=== PATIENT | male | born 1985 | race African-American/Black ===

== ENCOUNTER 2020-09-09 19:59 | Emergency (ER) | payer BC ==
[2020-09-09] MEDS ORDERED: Lidocaine 2% 5 ML SDV INJECT ONE (20:41)
--- NOTE | 2020-09-09 20:46 | EDM.PDOC ---
ED HPI GENERAL MEDICAL PROBLEM - General Chief Complaint: Upper Extremity Injury/Pain Stated Complaint: SWOLLEN FINGER Time Seen by Provider: 09/09/20 20:22 Source of Information: Reports: Patient History Limitations: Reports: No Limitations - History of Present Illness INITIAL COMMENTS - FREE TEXT/NARRATIVE: Patient is a 35-year-old male presents today for left middle finger swelling. Patient states that he recurrently gets swelling around the distal end of his finger. Patient is he occasionally bites his nails. Patient is in the past been placed on antibiotics for this. Patient denies any spreading of the swelling no redness not there is not feel warm denies any systemic symptoms of fever chills nausea vomiting. - Related Data Allergies Allergy/AdvReac Type Severity Reaction Status Date / Time shrimp Allergy Other Verified 09/09/20 20:44 Home Meds: Home Meds Amoxicillin/Potassium Clav [Augmentin 875-125 Tablet] 1 each PO BID 7 Days #14 tablet 09/09/20 [Rx] Review of Systems - Review of Systems Review Of Systems: See Below Constitutional: Reports: No Symptoms Eyes: Reports: No Symptoms Ears: Reports: No Symptoms Nose: Reports: No Symptoms Mouth/Throat: Reports: No Symptoms Respiratory: Reports: No Symptoms Cardiovascular: Reports: No Symptoms GI/Abdominal: Reports: No Symptoms Genitourinary: Reports: No Symptoms Musculoskeletal: Reports: Other (finger swelling) Skin: Reports: No Symptoms Neurological: Reports: No Symptoms Psychiatric: Reports: No Symptoms ED EXAM, GENERAL - Physical Exam Exam: See Below Exam Limited By: No Limitations General Appearance: Alert, WD/WN, No Apparent Distress Respiratory/Chest: No Respiratory Distress, Lungs Clear Cardiovascular: Normal Peripheral Pulses, Regular Rate, Rhythm Peripheral Pulses: 2+: Radial (L), Radial (R) GI/Abdominal: Normal Bowel Sounds, Soft, Non-Tender Extremities: Normal Inspection, Normal Range of Motion, Non-Tender, Other (left middle finger distal swelling ) Neurological: Alert, Oriented ED TRAUMA EXTREMITY PROCEDURES - I&D Site: left middle finger Skin Prep: Providone-Iodine (Betadine) Local Anesthesia: Lidocaine: 1% Plain Local Anesthetic Volume: 2cc Area Incised With: 11 Blade Drainage: Purulent, Bloody Probed to Break Up Loculations: No Packed With: None Sterile Dressinx4(s) Complications: No Course - Vital Signs Last Recorded V/S: Last Vital Signs Temp 96.8 F L 09/09/20 20:38 Pulse 88 09/09/20 20:38 Resp 15 09/09/20 20:38 BP 144/77 H 09/09/20 20:38 Pulse Ox 99 09/09/20 20:38 - Orders/Labs/Meds Meds: Medications Discontinued Medications Generic Name Dose Route Start Last Admin Trade Name Kristal PRN Reason Stop Dose Admin Amoxicillin/Clavulanate Potassium 1 tab 09/09/20 20:47 09/09/20 21:03 Amoxicillin/Clavulanate K 875-125 Mg Tab PO 09/09/20 20:48 1 tab ONETIME ONE Administration Lidocaine 5 ml 09/09/20 20:41 09/09/20 20:45 Lidocaine 2% 5 Ml Sdv INJECT 09/09/20 20:42 Not Given ONETIME ONE Lidocaine HCl Confirm 09/09/20 20:45 09/09/20 21:03 Lidocaine 1% 5 Ml Sdv Administered 09/09/20 20:46 5 ml Dose Administration 5 ml .ROUTE .STK-MED ONE Departure - Departure Time of Disposition: 21:05 Disposition: Home, Self-Care 01 Condition: Good Clinical Impression: Paronychia of finger - Discharge Information *PRESCRIPTION DRUG MONITORING PROGRAM REVIEWED*: Not Applicable *COPY OF PRESCRIPTION DRUG MONITORING REPORT IN PATIENT ROSSY: Not Applicable Prescriptions: Amoxicillin/Potassium Clav [Augmentin 875-125 Tablet] 1 each PO BID 7 Days #14 tablet Instructions: Paronychia, [id number] Referrals: PCP,None [Primary Care Provider] - Forms: ED Department Discharge Additional Instructions: The following information is given to patients seen in the emergency department who are being discharged to home. This information is to outline your options for follow-up care. We provide all patients seen in our emergency department with a follow-up referral. The need for follow-up, as well as the timing and circumstances, are variable depending upon the specifics of your emergency department visit. If you don't have a primary care physician on staff, we will provide you with a referral. We always advise you to contact your personal physician following an emergency department visit to inform them of the circumstance of the visit and for follow-up with them and/or the need for any referrals to a consulting specialist. The emergency department will also refer you to a specialist when appropriate. This referral assures that you have the opportunity for follow-up care with a specialist. All of these measure are taken in an effort to provide you with optimal care, which includes your follow-up. Under all circumstances we always encourage you to contact your private physician who remains a resource for coordinating your care. When calling for follow-up care, please make the office aware that this follow-up is from your recent emergency room visit. If for any reason you are refused follow-up, please contact the [facility] Emergency Department at and asked to speak to the emergency department charge nurse. Please follow up with your primary care physician. If you do not have a primary care physician, see below: [facility] [address] [place] [id number] My [facility] [address] [place] [address] You are seen today for swelling to the left middle finger which looks like a paronychia. We able to drain a small amount of pus from the area temporally the pain. We also sent home antibiotics. If you have increased swelling drainage or other symptoms please return to ED immediately I will follow with primary care physician. Sepsis Event Note (ED) - Evaluation Sepsis Screening Result: No Definite Risk - Focused Exam Vital Signs: Vital Signs Temp Pulse Resp BP Pulse Ox 09/09/20 20:38 96.8 F L 88 15 144/77 H 99 - Assessment/Plan Plan: Patient is a 35-year-old male presents today for swelling to the left middle finger. Likely a paronychia light. Will drain and placed on antibiotics.
[2020-09-09] MEDS ORDERED: Amoxicillin/Clavulanate K 875-125 MG Tab PO ONE (20:47)
== END 2020-09-09 21:11 | disposition home or self-care (01) ==
LOC: MW.ED 19:59
DX: L03.012 Cellulitis of left finger (principal); Z91.013 Allergy to seafood
CPT/HCPCS: 10060; 99283; A9270

== ENCOUNTER 2024-12-21 16:16 | Emergency (ER) | payer SELFPAY ==
[2024-12-21] MEDS: Amoxicillin/Clavulanate K 875-125 MG Tab PO ONE (16:48)
== END 2024-12-21 16:51 | disposition home or self-care (01) ==
LOC: MW.ED 16:16
DX: H60.91 Unspecified otitis externa, right ear (principal); Z91.013 Allergy to seafood
CPT/HCPCS: 99282; A9270